=== PATIENT | female | born 1930 | race Caucasian/White ===

== ENCOUNTER 2017-01-20 05:00 | Day surgery (SDC) | payer MEDICARE, OTHER ==
[2017-01-19 12:45] LABS: HEMATOCRIT 40.9 % (36.0-48.0); HEMOGLOBIN 13.5 g/dL (12-16); MCH 31.3 pg (26.0-34.0); MCV 94.9 fL (80.0-100.0); MEAN PLATELET VOLUME 10.3 fL (7.4-10.4); RBC 4.31 10x6/uL (4.00-5.40); RDW 13.8 % (11.5-14.5); WBC 7.3 10x3/uL (4.8-10.8)
[~2017-01-20 05:00] MED LIST: CELEBREX200 MG; EVISTA60 MG PO; FOLBEE PLUS TAB1 TAB PO; MIRAPEX1 MG PO; PREMPRO 0.45-1.1 TAB PO; SYNTHROID75 MCG PO; TOPROL XL50 MG PO; VESICARE5 MG PO; ZOCOR40 MG PO
[2017-01-20 06:11] VITALS: BP 126/65; BMI 33.3
--- NOTE | 2017-01-20 08:45 | NUR ---
0844: ATTEMPTED TO REACH FAMILY EXT 1047, 1395, 4381
--- NOTE | 2017-01-20 13:37 | NUR ---
1240 ROLLED TOWEL PLACED UNDER LUMBAR REGION OF BACK FOR PRESSURE TO SITE. Janel MATHEW R.N.
[2017-01-20] MEDS ORDERED: HYDROCODONE-APA1 TAB PO (14:35)
--- NOTE | 2017-01-20 14:45 | NUR ---
DR SUAZO HERE TO SEE PATIENT, RX WRITTEN. NORCO GIVEN FOR PAIN LEVEL OF 3/10, PATIENT HAS HOUR AND A HAL[address] DRIVE HOME. PATIENT AMBULATING AROUND ROOM WITHOUT UNSTEADINESS. PIV DC'D WITH TIP INTACT. PATIENT DRESSING IN PERSONAL CLOTHING
--- NOTE | 2017-02-03 13:16 | OP ---
PATIENT NAME: TRINA WOOTEN MEDICAL RECORD: [id number] :31 LOCATION:[facility] ADMISSION DATE: SURGEON: UHNG ZAVALA MD DATE OF OPERATION: 01/20/2017 SURGEON: Hung Zavala MD PREOPERATIVE DIAGNOSIS: Lumbar spinal stenosis with foraminal stenosis at L1-2, L2-3, and L3-4 bilaterally. POSTOPERATIVE DIAGNOSIS: Lumbar spinal stenosis with foraminal stenosis at L1-2, L2-3, and L3-4 bilaterally PROCEDURES: Lumbar laminectomy at L1-2, L2-3, and L3-4 on the right with sublaminar decompression and bilateral foraminotomies at L1-2, L2-3, and L3-4 with METRx retractor. DESCRIPTION OF TECHNIQUE: After induction of general endotracheal anesthesia, the patient was rolled prone on a Vincenzo frame. Lumbar spine was prepped and draped in usual sterile fashion. Fluoroscopic x-ray and spinal needle were used to localize the L2-3 interspace. A stab incision was made with #11 blade. Series of dilators were used to advance a METRx retractor to the L2-3 interspace. A laminectomy was carried out on the right side with Midas-Delfino drill and microscope. The METRx retractor was wanded to the L1-2 level and laminectomy was carried out with Midas-Delfino drill and microscope at L1-2 on the right facetectomy foraminotomy. Hypertrophied ligamentum flavum was removed at both levels. A sublaminar bone was removed with Midas-Delfino drill under microscopic illumination at both levels. Following this, the foraminotomies were carried out on the left side as well. Next, attention was turned to the L3-4 level. The METRx retractor was wanded down to this level as well. Level was confirmed with fluoroscopic x-ray. A microscope and Midas-Delfino drill were used to perform a laminectomy at L3-4 on the right. Hypertrophied ligamentum flavum was removed on the right side and then a sublaminar decompression was carried out with Midas-Delfino drill and microscopic illumination on the left side. Hypertrophied ligamentum flavum was removed on both sides. Foraminotomies were carried out on both sides with a Cloward rongeur. Following this, the dura was decompressed well at all levels. Meticulous hemostasis was maintained throughout. The wound was irrigated with copious amounts of Ancef irrigant solution. The fascia was closed with a 2-0 Vicryl suture. The subdermal layer was closed with 3-0 Vicryl suture. Skin was closed with jeff. A sterile dressing was applied to the wound. The patient was awakened in good condition and taken to recovery. All counts were reported as correct. Estimated blood loss was minimal. TRANSINT:[id number] Voice Confirmation ID: [id number] DOCUMENT ID: [id number] HUNG ZAVALA MD at 1316 CC: MARIA L SAMANIEGO MD [id number] DICTATION DATE: 01/21/17 0736 DIRECTOR SUPPLY: 01/21/17 0935 [facility] 01/20/[address] [address]
== END 2017-01-20 15:02 | disposition home or self-care (01) ==
LOC: D.OPS 05:00 → D.PAN 07:30 → D.OPS 15:02
PROVIDERS: Anesthesiology
DX: M48.061 Spinal stenosis, lumbar region without neurogenic claudication (principal); Z01.812 Encounter for preprocedural laboratory examination

== ENCOUNTER 2017-01-23 11:10 | Observation (INO) | payer MEDICARE, OTHER ==
[~2017-01-23 11:10] MED LIST changes: +HYDROCODONE-APA1 TAB PO
--- NOTE | 2017-01-23 16:20 | NUR ---
RECEIVED TO ROOM 2231 FROM ER VIA . ELVIS TO R AC. INCISIONS X 2 TO LOWER BACK WITH DENI INTACT. COMPLAINING OF SHARP SHOOTING PAIN DOWN LEGS THAT STARTED 2 DAYS AGO. FRIEND AT BEDSIDE.
[2017-01-23 16:32] VITALS: BP 161/68; BMI 33.3
--- NOTE | 2017-01-23 16:42 | NUR ---
MORPHINE 3 MG GIVEN SLOW IVP FOR COMPLAINT OF PAIN.
--- NOTE | 2017-01-23 17:20 | NUR ---
OFF FLOOR TO MRI VIA .
--- NOTE | 2017-01-23 18:01 | NUR ---
RETURNED TO ROOM FROM MRI VIA .
--- NOTE | 2017-01-23 19:00 | NUR ---
REPORT RECEIVED AND CARE OF PT ASSUMED. PT LYING IN SUPINE POSITION WATCHING TV. IV IN RIGHT AC SALINE LOCKED. WILL MONITOR CLOSELY FOR NEEDS.
[2017-01-23 20:00] VITALS: BP 140/71
--- NOTE | 2017-01-23 21:45 | NUR ---
CALLED ER PHYSICIAN, DR BRUNSON, TO REQUEST HOME MED MERIPEX 1 MG PO PER PT REQUEST. ORDER RECEIVED.
--- NOTE | 2017-01-23 21:58 | NUR ---
HS MEDICATIONS GIVEN TO INCLUDE MORPHINE 3 MG IVP FOR PAIN. ASSISTED PT UP TO USE BSC. POSITIONED BACK IN BED FOR COMFORT.
[2017-01-24] VITALS: BP 136/70
--- NOTE | 2017-01-24 00:15 | NUR ---
HS SNACK PROVIDED TO PT PER REQUEST.
--- NOTE | 2017-01-24 01:05 | NUR ---
PT ASSISTED UP TO USE BSC BY WELDER FITTER HELPER. POSITIONED BACK IN BED FOR COMFORT.
[2017-01-24 04:00] VITALS: BP 133/72
--- NOTE | 2017-01-24 07:30 | NUR ---
ASSESSMENT COMPLETE. SL TO R AC PATENT. INCISIONS X 2 TO LOWER BACK WITH DENI INTACT. COMPLAINING OF SHARP, SHOOTING PAIN TO LEG WITH AMBULATION. DENIES ANY NEEDS AT PRESENT.
[2017-01-24 08:45] VITALS: BP 140/76
--- NOTE | 2017-01-24 11:00 | NUR ---
SL RESITED TO L FA WITH 22 GUAGE X 1 ATTEMPT PER PATIENT REQUEST. SL REMOVED FROM R AC. CATHETER TIP INTACT.
[2017-01-24 11:07] VITALS: BP 141/62
--- NOTE | 2017-01-24 15:50 | NUR ---
SL REMOVED. CATHETER TIP INTACT. DISCHARGE TEACHING GIVEN TO PATIENT. SCRIPT FOR MEDROL DOSE PACK GIVEN TO PATIENT.
--- NOTE | 2017-01-24 15:55 | NUR ---
DC'D HOME WITH FRIENDS. ESCORTED TO VEHICLE VIA WC WITH BELONGINGS.
--- NOTE | 2017-03-31 13:26 | SS ---
PATIENT:TRINA GRAJEDA :32 MEDICAL RECORD: [id number] DISCHARGE SUMMARY ADMISSION DATE: 01/23/17 DISCHARGE DATE: 01/24/17 HOSPITAL COURSE: Ms. Grajeda was placed on the floor on IV Decadron due to back pain and lower extremity pain and paresthesias. MRI scan revealed epidural fluid accumulation that was felt to be consistent with postoperative inflammatory changes. Her symptoms greatly improved on IV Decadron. She was sent home in less than 24 hours on a regular diet and Medrol Dosepak taper, which is tapering steroid pack. She is to follow up with Dr. Suazo in 2 weeks and she is to follow up with her family physician in 1 week. TRANSINT:[id number] Voice Confirmation ID: [id number] DOCUMENT ID: [id number] HUNG SUAZO MD at 1326 CC: [id number] DICTATION DATE: 03/24/17 1221 MANUFACTURING JOB TITLES: 03/25/17 0744 DIS IN 01/24/17 [id number] [place] [address]
== END 2017-01-24 15:55 | disposition home or self-care (01) ==
LOC: D.ER 11:10 → D.MS 15:40 → OBSVTIME 15:40 → D.MS 15:40
PROVIDERS: ADMIT Neurological Surgery
DX: G97.61 Postprocedural hematoma of a nervous system organ or structure following a nervous system procedure (principal); Y83.8 Other surgical procedures as the cause of abnormal reaction of the patient, or of later complication, without mention of misadventure at the time of the procedure; E78.00 Pure hypercholesterolemia, unspecified; E03.9 Hypothyroidism, unspecified; G25.81 Restless legs syndrome

== ENCOUNTER 2017-10-13 06:40 | Day surgery (SDC) | payer MEDICARE, OTHER ==
[~2017-10-13] VITALS: Ht 165.1 cm; Wt 90.5 kg
[2017-10-13] VITALS (7 sets, daily range): BP systolic 122–175; BP diastolic 69–97; Ht 165.1 cm; Wt 90.5 kg
--- NOTE | ~2017-10-13 | OP ---
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 PROCEDURE: Anterior cervical diskectomy and fusion at C7-T1 with anterior cervical plate and screws, a separate PEEK interbody cage and Lila bone allograft with stem cells. DESCRIPTION AND TECHNIQUE: After induction of general endotracheal anesthesia, the patient was positioned supine on the operating table. Neck was prepped and draped in usual sterile fashion. Fluoroscopic x-ray and freer localized the C7-T1 interspace. A transverse skin incision was carried out from the midline to the sternocleidomastoid muscle. The platysma was divided with Bovie cautery. Using blunt and sharp dissection with Metzenbaum scissors, I proceeded in avascular plane medial to the carotid sheath. Following this, the C7-T1 interspace was identified with fluoroscopic x-ray and spinal needle. The longus colli muscles were elevated from bodies of C7 and T1. A Vernon distracting pins were placed in body of the C7 and T1. Disk space was incised with #11 blade. The disk material was removed with pituitary rongeurs and curettes. Posteriorly, the osteophytes were drilled away with Midas-Delfino drill and microscope. The posterior longitudinal ligament was removed with Cloward rongeurs. The dura was decompressed well within the central dura as well as the nerve roots on both sides. A PEEK interbody cage was placed into the disk space under distraction. Prior to this, cages filled with Lila bone allograft with stem cells. Next, a separate anterior cervical plate and screws was used to span the C7-T1 interspace. This was a midline plate. Locking cams were tightened down with the screw heads. Good position of the hardware was confirmed with fluoroscopic x-ray. Meticulous hemostasis was maintained throughout the wound. The wound was irrigated with copious amounts of Ancef irrigant solution. The platysma and subdermal layer closed with interrupted 3-0 Vicryl suture. The skin was reapproximated with Steri-Strips and benzoin. A sterile dressing was applied to the wound. The patient was awakened in good condition and taken to recovery. All counts reported as correct. Estimated blood loss was minimal. TRANSINT:[id number] Voice Confirmation ID: [id number] DOCUMENT ID: [id number] HUNG SUAZO MD at 1843 CC: [id number] DICTATION DATE: 10/27/17 2359 MANAGER WELLNESS: 10/28/17 0802 [facility] 10/14/[address] [address]
[~2017-10-13 06:40] MED LIST changes: -CELEBREX200 MG; +CELEBREX200 MG PO
[2017-10-13 07:04] LABS: BASOPHILS 0.5 % (0-2); EOSINOPHILS 2.2 % (0-7); HEMATOCRIT 40.2 % (36.0-48.0); HEMOGLOBIN 13.2 g/dL (12-16); IMMATURE GRANULOCYTES 0.6 % (0-5); LYMPHOCYTES 18.3 % (15-50); MCH 31.4 pg (26.0-34.0); MCHC 32.8 g/dL (31.0-37.0); MCV 95.5 fL (80.0-100.0); MEAN PLATELET VOLUME 10.2 fL (7.4-10.4); MONOCYTES 11.9 % (2-11); NEUTROPHILS 66.5 % (40-80); PLATELET COUNT 201 10x3/uL (130-400); RBC 4.21 10x6/uL (4.00-5.40); RDW 14.3 % (11.5-14.5); WBC 8.1 10x3/uL (4.8-10.8)
[2017-10-13 07:29] LABS: ANION GAP 12.3 mmol/L (8-16); CREATININE - SERUM 0.9 mg/dL (0.6-1.3); POTASSIUM - SERUM 4.3 mmol/L (3.5-5.1)
[2017-10-14 04:00] VITALS: BP 118/58
[2017-10-14 08:56] VITALS: BP 137/87
== END 2017-10-14 13:15 | disposition home or self-care (01) ==
LOC: D.OPS 06:40 → D.MS 06:40 → D.OPS 09:15 → D.PAN 09:15 → D.MS 12:23 → D.OPS 10-14 13:15
PROVIDERS: Anesthesiology
DX: M50.13 Cervical disc disorder with radiculopathy, cervicothoracic region (principal); M25.78 Osteophyte, vertebrae; I10 Essential (primary) hypertension; E03.9 Hypothyroidism, unspecified; Z01.812 Encounter for preprocedural laboratory examination

== ENCOUNTER 2019-02-25 11:15 | Day surgery (SDC) | payer MEDICARE, OTHER ==
[~2019-02-25] VITALS: Ht 165.1 cm; Wt 90.7 kg
[2019-02-25 12:09] LABS: BASOPHILS 0.6 % (0-2); EOSINOPHILS 2.6 % (0-7); HEMOGLOBIN 13.1 g/dL (12-16); IMMATURE GRANULOCYTES 0.6 % (0-5); LYMPHOCYTES 25.5 % (15-50); MCH 30.8 pg (26.0-34.0); MCHC 32.8 g/dL (31.0-37.0); MCV 93.9 fL (80.0-100.0); MEAN PLATELET VOLUME 10.4 fL (7.4-10.4); MONOCYTES 11.5 % (2-11); NEUTROPHILS 59.2 % (40-80); PLATELET COUNT 238 10x3/uL (130-400); RBC 4.26 10x6/uL (4.00-5.40); RDW 14.7 % (11.5-14.5)
[2019-02-25 12:24] LABS: CALC OSMOLALITY 281 mosm/kg (275-300); CARBON DIOXIDE 25.7 mmol/L (21.0-32.0); CHLORIDE - SERUM 106 mmol/L (98-107); CREATININE - SERUM 0.6 mg/dL (0.6-1.3); GLUCOSE 126 mg/dL (74-106); POTASSIUM - SERUM 3.9 mmol/L (3.5-5.1); SODIUM 140 mmol/L (136-145); UREA NITROGEN 16 mg/dL (7-18); eGFR NON AFRICAN AMERICAN > 90 mL/min (90-120)
[2019-02-25 13:16] VITALS: BP 148/79; Ht 165.1 cm; Wt 90.7 kg
== END 2019-02-25 17:53 | disposition home or self-care (01) ==
LOC: D.PAN 11:15
PROVIDERS: Anesthesiology; ATTEND Neurological Surgery
DX: G56.01 Carpal tunnel syndrome, right upper limb (principal)